=== PATIENT | female | born 1990 | race Caucasian/White ===

== ENCOUNTER 2024-01-11 09:00 | Emergency (ER) | payer OTHER ==
[~2024-01-11] VITALS: Ht 157.5 cm; Wt 64.6 kg
[2024-01-11 09:19] VITALS: BP 111/63; PULSE 81; RESP 18; TEMP 97.6; O2SAT 98
[2024-01-11 09:44] VITALS: O2SAT 98
[2024-01-11] MEDS: KETOROLAC 30 MG/ML VIAL IM ONE (10:02)
[2024-01-11 10:09] VITALS: BP 99/63; PULSE 70; RESP 18; TEMP 97.6; O2SAT 99
[2024-01-11 10:09] LABS: BASOPHILS # (AUTO) 0.1 K/uL (0.00-0.22); BASOPHILS % (AUTO) 0.9 % (0.0-2.0); EOSINOPHILS # (AUTO) 0.2 K/uL (0-0.4); EOSINOPHILS % (AUTO) 3.2 % (0.0-4.0); HEMATOCRIT 29.5 % (36-48); LYMPHOCYTES # (AUTO) 1.5 K/uL (2.5-16.5); LYMPHOCYTES % (AUTO) 22.1 % (20.5-51.1); MEAN CORPUSCULAR HEMOGLOBIN 20 pg (27-31); MEAN CORPUSCULAR HGB CONC 31 g/dL (33-37); MEAN CORPUSCULAR VOLUME 64.5 fL (80-94); MONOCYTES # (AUTO) 0.3 K/uL (0.8-1.0); NEUTROPHILS # (AUTO) 4.7 K/uL (1.8-7.7); NEUTROPHILS % (AUTO) 68.8 % (42.2-75.2); PLATELET COUNT (AUTO) 307 K/uL (140-450); RED BLOOD CELL COUNT(AUTO) 4.58 MIL/uL (4.20-5.40); RED CELL DISTRIBUTION WIDTH 20.6 % (11.6-13.7); WHITE BLOOD COUNT (AUTO) 6.8 K/uL (4.8-10.8)
[2024-01-11] MEDS ORDERED: NAPR-1704 PO (10:24)
[2024-01-11] MEDS ORDERED: MEDR10TA PO (10:24)
[2024-01-11] MEDS: LORazepam 1 MG TAB PO ONE (10:30)
[2024-01-11] MEDS: medroxyPROGESTERone 10 MG TAB PO SCH (10:41)
== END 2024-01-11 10:44 | disposition home or self-care (01) ==
LOC: MED 09:00
DX: N93.8 Other specified abnormal uterine and vaginal bleeding (principal); R20.2 Paresthesia of skin; R07.9 Chest pain, unspecified; Z79.1 Long term (current) use of non-steroidal anti-inflammatories (NSAID); Z79.899 Other long term (current) drug therapy
CPT/HCPCS: 36415; 81025; 85025; 93005; 96372; 99284; J1885